=== PATIENT | male | born 1995 | race Caucasian/White ===

== ENCOUNTER 2022-10-28 16:35 | Outpatient (REF) | payer OTHER, SELFPAY ==
[2022-10-28 17:33] LABS: Influenza A PCR NEGATIVE (Negative); Influenza B PCR NEGATIVE (Negative); Resp Syncy Virus RNA Qual PCR NEGATIVE (Negative); SARS COV2 PCR INHOUSE NEGATIVE (Negative)
== END 2022-10-28 16:36 | disposition home or self-care (01) ==
LOC: HO.LNP 16:35
PROVIDERS: Visit Provider Internal Medicine
DX: Z20.822 Contact with and (suspected) exposure to COVID-19 (principal); R43.9 Unspecified disturbances of smell and taste
CPT/HCPCS: 0241U

== ENCOUNTER 2023-02-19 11:51 | Outpatient (REF) | payer OTHER, SELFPAY ==
[2023-02-19 13:55] LABS: MANUAL DIFF FLAG NO
[2023-02-19 14:15] LABS: Basophils Percent Auto 0.4 % (0-2); Eosinophils Absolute Auto 0.2 X10*3/uL (0.0-0.4); Eosinophils Percent Auto 2.7 % (0-4); Hematocrit 45.2 % (42.0-52.0); Hemoglobin 16.1 g/dl (14.0-18.0); Imm Gran Abs Auto 0.03 X10*3/uL (0.00-0.03); Imm Gran Pct Auto 0.4 % (0.0-0.4); Lymphocytes Absolute Auto 2.3 X10*3/uL (1.2-4.9); Lymphocytes Percent Auto 28.8 % (20-40); Mean Corpuscular HGB Conc 35.6 g/dl (31.0-36.0); Mean Corpuscular Hemoglobin 30.8 pg (27.0-33.0); Mean Corpuscular Volume 86.4 fL (80.0-98.0); Mean Platelet Volume 9.9 fL (9.4-12.4); Monocytes Absolute Auto 0.5 X10*3/uL (0.1-1.2); Monocytes Percent Auto 6.6 % (2-11); Neutrophils Absolute Auto 4.8 x10*3/uL (2.0-8.3); Neutrophils Percent Auto 61.1 % (45-73); Platelet Count 234 X10*3/uL (160-400); Red Blood Count 5.23 X10*6/uL (4.60-5.80); Red Cell Distribution Width 11.9 % (11.0-16.0); White Blood Count 7.9 X10*3/uL (4.8-10.8)
[2023-02-19 14:30] LABS: Alanine Aminotransferase 51 U/L (0-40); Albumin Level 4.7 g/dL (3.5-5.0); Alkaline Phosphatase 92 U/L (39-117); Anion Gap 12 (12-20); Aspartate Amino Transferase 28 U/L (5-37); Bilirubin Total 0.6 mg/dL (0.0-1.0); Blood Urea Nitrogen 10 mg/dL (9-16); Calcium 9.6 mg/dL (8.4-10.2); Carbon Dioxide 26 mmol/L (22-29); Chloride 106 mmol/L (96-108); Cholesterol 237 mg/dL; Estimated Glomerular Filt Rate > 60; Glucose Fasting 92 mg/dL (60-99); HDL Cholesterol 33 mg/dL; LDL Cholesterol Calculated 138 mg/dl; Potassium 4.4 mmol/L (3.3-5.1); Sodium 140 mmol/L (135-145); Total Protein 7.2 g/dL (6.5-8.0); Triglycerides 330 mg/dL
== END 2023-02-19 11:52 | disposition home or self-care (01) ==
LOC: HO.HMGCLDS 11:51
PROVIDERS: PCP Internal Medicine; Visit Provider Internal Medicine
DX: R51.9 Headache, unspecified (principal); F41.0 Panic disorder [episodic paroxysmal anxiety]; F32.A Depression, unspecified; F11.20 Opioid dependence, uncomplicated
CPT/HCPCS: 36415; 80053; 80061; 85025

== ENCOUNTER 2023-04-23 14:05 | Outpatient (REF) | payer OTHER, SELFPAY ==
--- NOTE | ~2023-04-23 | XR_ITS ---
EXAMINATION: XR CHEST CLINICAL INFORMATION: Shortness of breath. COMPARISON: None available. TECHNIQUE: 2 views of the chest were obtained. FINDINGS: No significant abnormality is noted involving the heart, lungs, mediastinum, bony thorax or soft tissues. XR/XR chest 2V IMPRESSION: No acute cardiopulmonary process.
[2023-04-23 18:24] LABS: Influenza A PCR NEGATIVE (Negative); Influenza B PCR NEGATIVE (Negative); Resp Syncy Virus RNA Qual PCR NEGATIVE (Negative); SARS COV2 PCR INHOUSE NEGATIVE (Negative)
== END 2023-04-23 14:06 | disposition home or self-care (01) ==
LOC: HO.HMGCX 14:05
PROVIDERS: PCP Internal Medicine; Visit Provider Nurse Practitioner Family
DX: Z20.822 Contact with and (suspected) exposure to COVID-19 (principal); R09.89 Other specified symptoms and signs involving the circulatory and respiratory systems; R06.02 Shortness of breath
CPT/HCPCS: 0241U; 71046

== ENCOUNTER 2023-05-04 12:29 | Outpatient (AMB) | payer OTHER, SELFPAY ==
--- NOTE | 2023-05-04 13:31 | MHC.OFFWIV ---
Intake Vital Signs 05/04/23 13:38 BP 130/96 H Blood Pressure Location Rt brachial Position Sitting Pulse 114 H Pulse Source Pulse Oximeter Pulse Oximetry (%) 98 Oxygen Delivery Method Room Air Intake Visit Reasons: EP Heart racing/pounding-Rib [id number] Intake Note: patient here for anxiety, he was told by pcp that he isnt able to take med that was prescribed for his anxiety the last time he came to our walk in because it interferes with another one of his medications and he needs something as he is having many panic attacks and it is starting to affect his day to day living. He also wanted to talk about rib pain that happens mainly on the left side but does go to the right side occasionally. Patient Tobacco Use Status: Current everyday Tobacco user Allergies sertraline Adverse Reaction (Verified 05/04/23 13:38) tachycardia Do you need a note to return to daycare/school/sports/work: No HPI EP Heart racing/pounding-Rib [id number] HPI Details Patient presents with heart racing and increased anxiety. He notes he is awaiting seeing his methadone clinic counselor later this week. He has trialed BuSpar and sertraline but did not tolerate either medication he felt increased anxiety within a couple of days.. He did note some relief with hydroxyzine however his PCP told him not to take it due to interaction with QT prolongation however BuSpar and sertraline have the same interaction with methadone. He denies suicidal thoughts or ideation. His anxiety starts with heart racing and then gets aches and pains across his chest and abdomen which then increases anxiety more wearing he has some disease such as cancer or something seriously wrong. Chest x-ray at last visit 1 week ago was normal. [facility] Medical History Anxiety and depression Anxiety attack Frequent headaches Long-term current use of methadone for opiate dependence Surgical History No pertinent past surgical history Social History Housing: Other Housing Other:: mobile home Patient Tobacco Use Status: Current everyday Tobacco user e-Cigarette/Vaping Use: Never Used service: No Current occupational status: unemployed Cognitive needs: No Hearing needs: No Vision needs: No Review of Systems Const Reports as per HPI and Reports no additional complaints Card Reports as per HPI and Reports no additional complaints Resp Reports as per HPI and Reports no additional complaints GI Reports as per HPI and Reports no additional complaints Musc Reports no additional complaints and Reports as per HPI Physical Exam Vital Signs: Last Vital Signs Pulse 114 H 05/04/23 13:38 BP 130/96 H 05/04/23 13:38 Pulse Ox 98 05/04/23 13:38 Oxygen Delivery Method Room Air 05/04/23 13:38 Const General: cooperative, comfortable and no acute distress Orientation/consciousness: patient oriented x3 Neck Neck: Yes normal visual inspection and Yes no lymphadenopathy Resp Effort & Inspection: normal respiratory effort Auscultation: clear to auscultation bilaterally Cardio Rate: regular rate Rhythm: regular rhythm Heart sounds: S1 normal heart sound present and S2 normal heart sound present Neuro General: patient oriented x3 Extrem General: Yes no pedal edema Results Reviewed Results Reviewed: EKG done in office today and heart rate has come down to 92 normal sinus rhythm without prolonged QT, arrhythmia or LVH. Assessment & Plan Assessment & Plan (1) Anxiety attack: Code(s): F41.0 - Panic disorder [episodic paroxysmal anxiety] Plan: Advised patient to continue with counselor at his methadone clinic ultimately he needs psychiatry and counselor to determine root cause of panic and find the right medication regimen for him. We did discuss that all medications he has tried do have the risk of QT prolongation with methadone. Hydroxyzine is likely the safest and he can continue t.i.d. p.r.n. use of this. ER if severe symptoms or suicidal thought or ideation occur. Coding Level of Care Code Est Pt Level 3 (93611) Diagnoses Anxiety attack F41.0
[2023-05-04 13:38] VITALS: BP 130/96; PULSE 114; O2SAT 98
== END 2023-05-04 14:27 | disposition home or self-care (01) ==
PROVIDERS: PCP Internal Medicine; Visit Provider Physician Assistant
DX: F41.0 Panic disorder [episodic paroxysmal anxiety] (principal)
CPT/HCPCS: 99213

== ENCOUNTER 2023-07-30 13:20 | Outpatient (AMB) | payer OTHER, SELFPAY ==
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
[2023-07-30 13:22] VITALS: BP 140/110; PULSE 97; O2SAT 98; BMI 30.6
== END 2023-07-30 14:38 | disposition home or self-care (01) ==
PROVIDERS: PCP Internal Medicine; Visit Provider Nurse Practitioner Family
DX: G43.009 Migraine without aura, not intractable, without status migrainosus (principal); R06.83 Snoring; G47.19 Other hypersomnia; G47.9 Sleep disorder, unspecified
CPT/HCPCS: 99204

== ENCOUNTER → 2023-07-30 13:20 | Outpatient (BNVA) | payer OTHER, SELFPAY | PROVIDERS: PCP Internal Medicine; Visit Provider Nurse Practitioner Family ==

== ENCOUNTER 2023-08-21 12:43 | Outpatient (AMB) | payer OTHER, SELFPAY ==
--- NOTE | 2023-08-21 13:04 | A.OFFPC_ITS ---
Vital Signs 08/21/23 13:05 Height 5 ft 8 in Weight 199 lb 2 oz BMI 30.3 BP 128/70 Blood Pressure Location Rt brachial Position Sitting Pulse 92 Pulse Source Pulse Oximeter Pulse Oximetry (%) 96 Oxygen Delivery Method Room Air Intake Visit Reasons: per Dr Lanier Swollen Glands Intake Note: pt is here for swollen glands that have not one away since last month since being treated at urgent care with antibiotics and then went back and was treated with allergy medications and pt is still c/o his glands still being swollen Allergies sertraline Adverse Reaction (Verified 08/23/23 18:07) tachycardia Medication List - Last Reconciled 08/23/23 by Dinora Lanier MD fluticasone propionate 50 mcg/actuation 1 spray intranasal DAILY magnesium oxide 400 mg PO BEDTIME 30 days methadone 94 mg PO DAILY riboflavin (vitamin B2) 400 mg PO DAILY 30 days Tobacco use date assessed: 08/21/23 Dental Screening Dental Screen Date: 08/21/23 Did you have a dental visit in the last 12 months?: No Did you have a dental problem in the last 6 months where you did not have access to dental care?: No Was dental information given to patient?: Patient has dentist HPI per Dr Lanier Swollen Glands 2 HPI Details Ten 7-year-old male, here today complaining of persistent swelling in both submandibular glands. Patient has been treated at the urgent care center and at the walk-in clinic for? Acute pharyngitis with antibiotics, with improvement of symptoms except for persistence of submandibular lymph node enlargement, reported by patient. He also complains of difficulty swallowing solids, sometimes food gets stuck in the middle of his throat and would need to drink a lot to push it down [facility] Medical History (Updated 08/21/23 @ 13:57 by Dinora Lanier MD) Difficulty swallowing solids Anxiety attack Frequent headaches Anxiety and depression Long-term current use of methadone for opiate dependence Surgical History No pertinent past surgical history Social History Housing: Other Housing Other:: mobile home Patient Tobacco Use Status: Current everyday Tobacco user Cigarettes Per Day: 10 e-Cigarette/Vaping Use: Never Used Second Hand Smoke Exposure: No service: No Current occupational status: unemployed Cognitive needs: No Hearing needs: No Vision needs: No Questionnaire PHQ-9 Over the last 2 weeks, how often have you been bothered by any of the following problems? 1. Little interest or pleasure in doing things: several days 2. Feeling down, depressed, or hopeless: not at all 3. Trouble falling or staying asleep, or sleeping too much: more than half the days 4. Feeling tired or having little energy: more than half the days 5. Poor appetite or overeating: not at all 6. Feeling bad about yourself - or that you are a failure or have let yourself or your family down: not at all 7. Trouble concentrating on things, such as reading the newspaper or watching television: not at all 8. Moving or speaking so slowly that other people could have noticed. Or the opposite - being so fidgety or restless that you have been moving around a lot more than usual: several days 9. Thoughts that you would be better off or of hurting yourself in some way: not at all Total score: 6 Depression Screening Interpretation: Negative Depression Screening Done: Yes 19342 - PHQ-9 Billing: Yes Source: Developed by Drs. Jay Bush, Joy Maurice, Ang Aldana and colleagues, with an educational ruben from [employer]. Thrive Questionnaire Date Thrive assessed: 08/21/23 I am a: Patient What is your living situation today?: I have a steady place to live Within the past 12 months, did the food you bought not last and you didn't have the money to get more?: Never true Within the past 12 months, did you worry whether your food would run out before you got money to buy more?: Often true Do you have trouble paying for medicines?: No Do you have trouble getting transportation to medical appointments?: No Do you have trouble paying your heating and electricity bill?: No Do you have trouble taking care of your child, family member or friend?: No Do you have trouble with day-to-day activities such as bathing, preparing meals, shopping, managing finances, etc.?: No Are you currently unemployed and looking for a job?: No Are you interested in more education?: No AUDIT C Alcohol Use Questionnaire (AUDIT-C) 1. How often do you have a drink containing alcohol?: Never 3. How often do you have six or more drinks on one occasion?: Never Total Score: 0 BONY-7 AMB Questionnaire BONY-7 Date BONY - 7 assessed: 08/21/23 Feeling nervous, anxious, or on edge: 1 = Several days Not being able to stop or control worryin = Several days Worrying too much about different things: 1 = Several days Trouble relaxin = Not at all Being so restless that it is hard to sit still: 0 = Not at all Becoming easily annoyed or irritable: 2 = More than half the days Feeling afraid as if something awful might happen: 0 = Not at all Total BONY-7 score (0-4 normal; 5-9 mild; 10-14 moderate; 15-21 severe): 5 Source: Developed by Drs. Jay Bush, Joy Maurice, Ang Aldana and colleagues, with an educational ruben from [employer]. BONY-7 Assessment Billing BONY-7 Assessment Tool: BONY-7 Assessment 57514 Review of Systems Const All systems reviewed & are unremarkable except as noted in HPI and below ENT Denies dizziness, Denies facial pain, Denies mouth lesions, Denies nasal congestion, Denies nasal discharge, Denies neck pain, Denies post nasal drip, Denies sinus pain, Denies sinus pressure, Denies sore throat and Denies throat swelling Card Denies chest pain, Denies lightheadedness and Denies dyspnea Resp Denies chest congestion, Denies cough, Denies dyspnea and Denies wheezing GI Denies abdominal pain, Denies change in bowel habits and Denies heartburn Reports no additional complaints Musc Reports no additional complaints and Denies neck pain Neuro Reports as per HPI, Denies dizziness and Denies focal weakness Endo Reports no additional complaints Aller/Immun Denies seasonal rhinorrhea, Denies throat swelling and Denies wheezing Physical exam (Primary Care) Vital Signs: Last Vital Signs Pulse 92 08/21/23 13:05 BP 128/70 08/21/23 13:05 Pulse Ox 96 08/21/23 13:05 Oxygen Delivery Method Room Air 08/21/23 13:05 BMI result Body Mass Index 30.3 Tobacco/Smoking Status: Tobacco use Status Tobacco use date assessed 08/21/23 08/21/23 13:12 Patient Tobacco Use Status Current everyday Tobacco 08/21/23 13:05 e-Cigarette/Vaping Use Never Used 08/21/23 13:05 PHQ-9: PHQ-9 Score PHQ-9: Total score 6 08/21/23 14:02 Depression Screening Interpretation: Negative Thrive Assessment: Date of Thrive Assessment Date Thrive assessed 08/21/23 08/21/23 13:19 Const Other: Alert oriented x3, no acute distress Nutritional Appearance: obese Orientation/consciousness: patient oriented x3 HENMT Head: Yes normocephalic and Yes atraumatic Ears: hearing grossly normal bilaterally, TM's normal bilaterally and EAC's normal General nose exam: Normal external nose present Face and sinus: Yes face symmetric Mouth: Normal oral and palatal mucosa present, oropharynx normal and moist mucous membranes Eyes General: appearance normal, both eyes and all related structures EOM: EOMs intact bilaterally Neck Other: Slightly enlarged submandibular lymph nodes palpated nontender Neck: Yes full ROM and Yes supple Resp Auscultation: clear to auscultation bilaterally Cardio Other: S1-S2 present regular rate and rhythm GI Inspection: Yes obesity Palpation (GI): Soft to palpation, nontender, no guarding and no masses Neuro General: patient oriented x3, gait normal, moves all extremities, Normal light touch and pain sensation, no focal motor deficits and CN's II-XI intact bilaterally Assessment and Plan Assessment & Plan (1) Cervical adenopathy: Code(s): R59.0 - Localized enlarged lymph nodes (2) Difficulty swallowing solids: Code(s): R13.10 - Dysphagia, unspecified Orders: Orders FL barium swallow 08/21/23 R13.10 - Dysphagia, unspecified US soft tiss head and/or neck 08/21/23 R59.0 - Localized enlarged lymph nodes Coding Level of Care Code Est Pt Level 3 (57934) Diagnoses Cervical adenopathy R59.0 Difficulty swallowing solids R13.10 Additional Codes BONY-7 Assessment Billing - BONY-7 Assessment Tool: BONY-7 Assessment [id number] ([id number])
[2023-08-21 13:05] VITALS: BP 128/70; PULSE 92; O2SAT 96; BMI 30.3
== END 2023-08-21 14:45 | disposition home or self-care (01) ==
PROVIDERS: PCP Internal Medicine; Visit Provider Internal Medicine
DX: R59.0 Localized enlarged lymph nodes (principal); R13.10 Dysphagia, unspecified
CPT/HCPCS: 99213

== ENCOUNTER 2023-09-03 10:20 | Outpatient (REF) | payer OTHER, SELFPAY ==
--- NOTE | ~2023-09-03 | US_ITS ---
EXAMINATION: US SOFT TISSUE OF THE NECK CLINICAL INFORMATION: Localized enlarged lymph nodes. COMPARISON: None available. TECHNIQUE: Linear transducer grayscale and color Doppler examination of the right and left submandibular neck. FINDINGS: Few bilateral submandibular and cervical nodes not pathologically enlarged by short axis criteria which maintain normal architecture of the largest measuring 1.6 x 0.4 x 1.3 cm in level 3 on the left and 0.7 x 0.4 x 0.6 cm on the right in the submandibular region. US/US soft tiss head and/or neck IMPRESSION: Few bilateral submandibular and cervical nodes not pathologically enlarged by short axis criteria which maintain normal architecture.
== END 2023-09-03 10:21 | disposition home or self-care (01) ==
LOC: HO.HMGCX 10:20
PROVIDERS: PCP Internal Medicine; Visit Provider Internal Medicine
DX: R59.0 Localized enlarged lymph nodes (principal)
CPT/HCPCS: 76536